=== PATIENT | female | born 2000 | race Caucasian/White ===

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

== ENCOUNTER 2018-07-21 17:58 | Emergency (ER) | payer BC, OTHER ==
[2018-07-21 18:45] VITALS: BP 131/71
--- NOTE | 2018-07-21 19:06 | UC ---
Lower Extremity/Ankle HPI - HPI Summary HPI Summary: fell down 4 stairs 2 days ago---pain right ankle and right knee abrasions right knee and right [place] - History of Current Complaint Chief Complaint: UCLowerExtremity Stated Complaint: R KNEE, R ANKLE INJURY Time Seen by Provider: 07/21/18 18:51 Hx Obtained From: Patient Hx Last Menstrual Period: June 27, 2018 ?: No Onset/Duration: Sudden Onset, Lasting Days - 2 Pain Intensity: 5 Pain Scale Used: 0-10 Numeric Aggravating Factor(s): Standing, Ambulation Alleviating Factor(s): Rest, Elevation Able to Bear Weight: Yes - with pain - Allergies/Home Medications Allergies/Adverse Reactions: Allergies Allergy/AdvReac Type Severity Reaction Status Date / Time codeine Allergy Itching Verified 07/21/18 18:47 hydrocodone Allergy Itching Verified 07/21/18 18:47 oxycodone Allergy Itching Verified 07/21/18 18:47 environmental Allergy Sneezing Uncoded 07/21/18 18:47 Home Medications: Home Medications Pnv No.95/Ferrous Fum/Folic AC [ Vitamin Tablet] 1 tab PO DAILY [History Confirmed 07/21/18] PMH/Surg Hx/FS Hx/Imm Hx Previously Healthy: No Respiratory History: Asthma - Surgical History Surgical History: Yes Surgery Procedure, Year, and Place: T&A, ear tubes. cyst removed right ovary/ right fallopian tube removed. deviated septum - Family History Known Family History: Positive: Hypertension, Diabetes - Social History Occupation: Student Lives: With Family Alcohol Use: Rare Substance Use Type: None Smoking Status (MU): Former Smoker Household Exposure Type: Cigarettes - Immunization History Vaccination Up to Date: Yes Review of Systems Constitutional: Negative Skin: Bruising - right knee, Other - abrasions right knee and right [place] Eyes: Negative ENT: Negative Respiratory: Negative Cardiovascular: Negative Gastrointestinal: Negative Genitourinary: Negative Motor: Negative Neurovascular: Negative Musculoskeletal: Negative Neurological: Negative Psychological: Negative Is Patient Immunocompromised?: No All Other Systems Reviewed And Are Negative: Yes Physical Exam Triage Information Reviewed: Yes Appearance: Well-Appearing, Well-Nourished, Pain Distress - mild Vital Signs: Initial Vital Signs Temp 98.6 F 07/21/18 18:42 Pulse 70 07/21/18 18:42 Resp 18 07/21/18 18:42 BP 131/71 07/21/18 18:42 Pulse Ox 99 07/21/18 18:42 Vital Signs Reviewed: Yes Eye Exam: Normal Eyes: Positive: Conjunctiva Clear ENT Exam: Normal ENT: Positive: Normal ENT inspection, Hearing grossly normal. Negative: Trismus , Muffled voice, Hoarse voice Dental Exam: Normal Neck exam: Normal Neck: Positive: Supple, Nontender Respiratory Exam: Normal Respiratory: Positive: Chest non-tender, No respiratory distress, No accessory muscle use Cardiovascular Exam: Normal Cardiovascular: Positive: RRR, Pulses Normal, Brisk Capillary Refill Musculoskeletal Exam: Other Musculoskeletal: Positive: ROM Intact, Strength Limited @ - right knee due to pain, Edema @ - right lateral ankle Neurological Exam: Normal Neurological: Positive: Alert, Muscle Tone Normal Psychological Exam: Normal Psychological: Positive: Normal Response To Family Skin Exam: Normal Skin: Positive: Other - abrasions right [place] and knee Lower Extremity Course/Dx - Course Course Of Treatment: gloria wrap on knee, gel splint crutches, abrasion care, follow with pcp, linh rubi - Differential Dx/Diagnosis Provider Diagnoses: right ankle sprain, right knee contusion, abrasions right lower leg Discharge - Sign-Out/Discharge Documenting (check all that apply): Patient Departure All imaging exams completed and their final reports reviewed: No - Discharge Plan Condition: Stable Disposition: HOME Patient Education Materials: Ibuprofen (By mouth), Crutch Instructions (ED), Contusion in Adults (ED), Ankle Stirrup Splint (ED), Abrasion (ED), R.I.C.E. Treatment (ED) Referrals: Medhat Wilson MD [Medical Doctor] - If Needed - Billing Disposition and Condition Condition: STABLE Disposition: Home
--- NOTE | 2018-07-22 07:52 | RAD ---
INDICATION: Right knee injury COMPARISON: None TECHNIQUE: AP, lateral, tunnel, and sunrise views were obtained. FINDINGS: The bony structures, joint spaces, and soft tissues are normal for age. IMPRESSION: NEGATIVE EXAMINATION. R0
--- NOTE | 2018-07-22 07:53 | RAD ---
Indication: Lateral RIGHT ankle pain post fall. Comparison: July 21, 2018 Technique: AP, mortise, and lateral views RIGHT ankle. REPORT AND IMPRESSION: #. Lateral soft tissue swelling and small talocrural joint effusion without evidence for fracture or malalignment. R0
--- NOTE | 2018-07-22 09:27 | UC ---
- Progress Note Progress Note: images reviewed Discharge - Sign-Out/Discharge Documenting (check all that apply): Post-Discharge Follow Up All imaging exams completed and their final reports reviewed: Yes - Discharge Plan Condition: Stable Disposition: HOME Patient Education Materials: Ibuprofen (By mouth), Crutch Instructions (ED), Contusion in Adults (ED), Ankle Stirrup Splint (ED), Abrasion (ED), R.I.C.E. Treatment (ED) Referrals: Medhat Wilson MD [Medical Doctor] - If Needed - Billing Disposition and Condition Condition: STABLE Disposition: Home
== END 2018-07-21 20:25 | disposition home or self-care (01) ==
LOC: UCEAST 17:58
DX: S93.401A Sprain of unspecified ligament of right ankle, initial encounter (principal); S80.01XA Contusion of right knee, initial encounter; S80.811A Abrasion, right lower leg, initial encounter; J45.909 Unspecified asthma, uncomplicated; Z88.5 Allergy status to narcotic agent; Z88.8 Allergy status to other drugs, medicaments and biological substances; Z91.09 Other allergy status, other than to drugs and biological substances; Z87.891 Personal history of nicotine dependence; W10.9XXA Fall (on) (from) unspecified stairs and steps, initial encounter; Y92.9 Unspecified place or not applicable
CPT/HCPCS: 84702; 99213; G0463

== ENCOUNTER 2019-10-10 11:22 | Emergency (ER) | payer BC ==
--- NOTE | 2019-10-10 11:26 | UC ---
Head Injury HPI - HPI Summary HPI Summary: 19 yo female presents with facial injury. She tells me that about 2 hours [employer] she slipped on the ice and landed on her left arm/face. Sustained a superficial abrasion to her left jaw. Since that time has had pain at her left TMJ when trying to open her mouth. Took 800mg ibuprofen and has been applying ice, but pain has not improved - she is concerned for fracture. No LOC. Denies headache, dizziness, dental fracture, neck pain, numbness/tingling. - History Of Current Complaint Stated Complaint: FACIAL INJURY Time Seen by Provider: 10/10/19 11:25 Hx Obtained From: Patient Hx Last Menstrual Period: June 27, 2018 Onset/Duration: Sudden Onset Severity Currently: Moderate Severity Initially: Moderate Pain Intensity: 6 Pain Scale Used: 0-10 Numeric - Allergies/Home Medications Allergies/Adverse Reactions: Allergies Allergy/AdvReac Type Severity Reaction Status Date / Time codeine Allergy Itching Verified 10/10/19 11:27 hydrocodone Allergy Itching Verified 10/10/19 11:27 oxycodone Allergy Itching Verified 10/10/19 11:27 environmental Allergy Sneezing Uncoded 10/10/19 11:27 Home Medications: Home Medications Ibuprofen TAB* [Motrin TAB* 800 MG] 800 mg PO ONCE 10/10/19 [History Confirmed 10/10/19] PMH/Surg Hx/FS Hx/Imm Hx Respiratory History: Asthma - Surgical History Surgical History: Yes Surgery Procedure, Year, and Place: T&A, ear tubes. cyst removed right ovary/ right fallopian tube removed. deviated septum - Family History Known Family History: Positive: Hypertension, Diabetes - Social History Lives: With Family Alcohol Use: Rare Substance Use Type: None Smoking Status (MU): Former Smoker Household Exposure Type: Cigarettes - Immunization History Vaccination Up to Date: Yes Review of Systems All Other Systems Reviewed And Are Negative: No Constitutional: Positive: Negative Skin: Positive: Other - Abrasion left face Eyes: Positive: Negative ENT: Positive: Negative Respiratory: Positive: Negative Cardiovascular: Positive: Negative Gastrointestinal: Positive: Negative Musculoskeletal: Positive: Other: - Left TMJ pain Neurological: Positive: Negative Psychological: Positive: Negative Physical Exam - Summary Physical Exam Summary: GENERAL: NAD. WDWN. No pain distress. SKIN: Superficial abrasion overlying left mandible. HEENT: Head: See skin. No thomas sign. Eyes: PERRLA. EOM intact. Ears: Hearing grossly normal. TMs intact, no bulging, erythema, or edema. Nose: Nasal mucosa pink and moist. NTTP maxillary and frontal sinus. No epistaxis. DENTAL: No fx. NECK: Supple. Nontender. CHEST: CTAB. No r/r/w. No accessory muscle use. Breathing comfortably and in no distress. CV: RRR. Pulses intact. Brisk cap refill. MSK: LEFT TMJ mild TTP. Pain with opening jaw or clenching teeth. NEURO: Alert. PSYCH: Age appropriate behavior. Triage Information Reviewed: Yes Vital Signs: Vital Signs: Temp Pulse Resp BP Pulse Ox 98.3 F 73 16 100/60 100 10/10/19 11:29 10/10/19 11:29 10/10/19 11:29 10/10/19 11:29 10/10/19 11:29 Vital Signs Reviewed: Yes Diagnostics - Radiology TMJ XR Radiology Interpretation Completed By: Radiologist Summary of Radiographic Findings: IMPRESSION: #. No radiographic evidence for mandibular fracture or TMJ dislocation. Head Injury Course/Dx - Course Course Of Treatment: XR as above. Suspect contusion from fall and impact. Recommend soft diet for the next 48hrs and continue tylenol/ibuprofen and ice for discomfort - Differential Dx/Diagnosis Provider Diagnosis: Fall, Temporomandibular joint (TMJ) pain Discharge ED - Sign-Out/Discharge Documenting (check all that apply): Patient Departure All imaging exams completed and their final reports reviewed: Yes - Discharge Plan Condition: Stable Disposition: HOME Patient Education Materials: Contusion in Adults (ED) Referrals: Melina Craig MD [Primary Care Provider] - Additional Instructions: If you develop a fever, shortness of breath, chest pain, new or worsening symptoms - please call your PCP or go to the ED immediately. Your X-ray was normal today. Continue to rest, apply ice, and take tylenol/ibuprofen as directed for discomfort - Billing Disposition and Condition Condition: STABLE Disposition: Home
[2019-10-10 11:35] VITALS: BP 100/60
== END 2019-10-10 12:25 | disposition home or self-care (01) ==
LOC: UCEAST 11:22
DX: S00.81XA Abrasion of other part of head, initial encounter (principal); M26.622 Arthralgia of left temporomandibular joint; J45.909 Unspecified asthma, uncomplicated; Z88.5 Allergy status to narcotic agent; Z91.09 Other allergy status, other than to drugs and biological substances; Z87.891 Personal history of nicotine dependence; W00.0XXA Fall on same level due to ice and snow, initial encounter; Y92.9 Unspecified place or not applicable
CPT/HCPCS: 70330; 99211; G0463

== ENCOUNTER 2019-12-09 11:15 | Emergency (ER) | payer BC ==
[2019-12-09 11:35] VITALS: BP 112/72
--- NOTE | 2019-12-09 12:48 | UC ---
Ear Complaint HPI - HPI Summary HPI Summary: Patient is a 19yo female presenting with b/l ear pain, worse on R, and nasal congestion x3 days. Patient states she is concerned for ear infection, stating she is prone to them. Notes "clear sticky drainage" from the R ear. Denies decreased hearing and dizziness. Denies fever and chills. Denies sore throat. Denies n/v. Denies taking anything for symptom relief. Currently breast feeding. - History of Current Complaint Chief Complaint: UCEar Stated Complaint: EAR PAIN Hx Obtained From: Patient Hx Last Menstrual Period: 3 wks ago Pain Intensity: 4 Pain Scale Used: 0-10 Numeric - Allergies/Home Medications Allergies/Adverse Reactions: Allergies Allergy/AdvReac Type Severity Reaction Status Date / Time codeine Allergy Itching Verified 12/09/19 11:35 hydrocodone Allergy Itching Verified 12/09/19 11:35 oxycodone Allergy Itching Verified 12/09/19 11:35 environmental Allergy Sneezing Uncoded 12/09/19 11:35 PMH/Surg Hx/FS Hx/Imm Hx Previously Healthy: Yes - Surgical History Surgical History: Yes Surgery Procedure, Year, and Place: T&A, ear tubes. cyst removed right ovary/ right fallopian tube removed. deviated septum - Family History Known Family History: Positive: Hypertension, Diabetes - Social History Alcohol Use: Rare Substance Use Type: None Smoking Status (MU): Former Smoker Household Exposure Type: Cigarettes - Immunization History Vaccination Up to Date: Yes Review of Systems All Other Systems Reviewed And Are Negative: Yes Constitutional: Positive: Negative. Negative: Fever, Chills ENT: Positive: Ear Ache - bilateral, worse on R. "clear, sticky drainage from R ear", Sinus Congestion. Negative: Sore Throat, Nasal Discharge Respiratory: Positive: Negative Cardiovascular: Positive: Negative Gastrointestinal: Positive: Negative Musculoskeletal: Negative: Myalgia Neurological: Negative: Headache Physical Exam Triage Information Reviewed: Yes Appearance: Well-Appearing, No Pain Distress, Well-Nourished Vital Signs: Initial Vital Signs Temp 97.6 F 12/09/19 11:33 Pulse 78 12/09/19 11:33 Resp 18 12/09/19 11:33 BP 112/72 12/09/19 11:33 Pulse Ox 98 12/09/19 11:33 Vital Signs Reviewed: Yes Eyes: Positive: Conjunctiva Clear ENT: Positive: Hearing grossly normal, Pharynx normal, Nasal congestion, TM bulging - right, TM red - right, Uvula midline, Other - EAC without erythema, edema, or drainage Neck exam: Normal Neck: Positive: Supple, Nontender, No Lymphadenopathy Respiratory Exam: Normal Respiratory: Positive: Lungs clear, Normal breath sounds, No respiratory distress Cardiovascular Exam: Normal Cardiovascular: Positive: RRR Neurological: Positive: Alert Psychological: Positive: Age Appropriate Behavior Skin Exam: Normal Ear Complaint Course/Dx - Course Course Of Treatment: Treated patient with amoxicillin for AOM. Instructed to continue with OTC analgesics and follow-up with PCP if symptoms worsen or persist. Patient voiced understanding and agreed with treatment plan. Discharge ED - Discharge Plan Condition: Stable Disposition: HOME Prescriptions: Amoxicillin PO (*) [Amoxicillin 875 MG (*)] 875 mg PO BID #10 tab Patient Education Materials: Ear Infection (ED) Referrals: Melina Craig MD [Primary Care Provider] - If Needed Additional Instructions: As discussed, take amoxicillin for treatment of your ear infection. A nasal saline spray or flonase may also help relieve symptoms. You may take ibuprofen or tylenol for pain relief. Follow up with your primary care provider if symptoms worsen or do not resolve within 5-7 days. - Billing Disposition and Condition Condition: STABLE Disposition: Home
== END 2019-12-09 13:15 | disposition home or self-care (01) ==
LOC: UCEAST 11:15
DX: H66.93 Otitis media, unspecified, bilateral (principal); Z88.5 Allergy status to narcotic agent; Z91.09 Other allergy status, other than to drugs and biological substances
CPT/HCPCS: 99212; G0463

== ENCOUNTER 2020-02-20 16:18 | Emergency (ER) | payer BC ==
--- NOTE | 2020-02-20 16:26 | UC ---
Complaint Female HPI - HPI Summary HPI Summary: 19 y/o female presents to the urgent care c/o intermittent bilateral lower abdominal cramping pain for the past 5-6 days. Sometimes she feels RT>LF. She still breast feeding. Her Baby is 9months and LMP: 01/21/2020 with irregular menstrual cycles. Pt states she occasional feels sharp cramping RTside pain. She has Hx of Ovarian cysts. She has an schedule appt w/ her CENTRAL OFFICE INSPECTOR on 03/05/2020. However, she called them to have an Pelvic US sooner and she was told to come to the Urgent care due to the circumstances of the COVID19. Her pain today is dull 3/10 w/o any radiation and doesn't get worse w/ food intake. Her BM and urination have been normal. Pt denies fever, SOB, cough, chest pain, blood in the stool, N/V/D, vaginal discharge or Hx of STD's. No recent travel. - History Of Current Complaint Stated Complaint: ABDOMINAL PAIN Time Seen by Provider: 02/20/20 16:24 Hx Obtained From: Patient Hx Last Menstrual Period: 3 wks ago ?: No Onset/Duration: Gradual Onset Timing: Intermittent - lower abdominal cramping pain RT>LF, Lasting Days - 5-6 days Severity Initially: Mild Severity Currently: Moderate Pain Intensity: 3 Pain Scale Used: 0-10 Numeric Character: Cramping Aggravating Factor(s): Nothing Alleviating Factor(s): Meds - tylenol PO Associated Signs And Symptoms: Positive: Negative. Negative: Fever, Back Pain, Vaginal Bleeding/Discharge, Vaginal Discharge, Nausea, Vomiting(# Of Episodes =) Related Hx: Similar Episode/Dx as: - ovarian cysts - Risk Factors Ectopic Risk Factor: Negative Ovarian Torsion Risk Factor: Reproductive Age, Ovarian Cysts/Tumors - Allergies/Home Medications Allergies/Adverse Reactions: Allergies Allergy/AdvReac Type Severity Reaction Status Date / Time codeine Allergy Itching Verified 02/20/20 16:31 hydrocodone Allergy Itching Verified 02/20/20 16:31 oxycodone Allergy Itching Verified 02/20/20 16:31 environmental Allergy Sneezing Uncoded 02/20/20 16:31 Home Medications: Home Medications Pnv No.95/Ferrous Fum/Folic AC [ Vitamin Tablet] 1 tab PO DAILY [History Confirmed 02/20/20] Acetaminophen TAB* [Tylenol TAB*] 650 mg PO PRN 02/20/20 [History] metroNIDAZOLE VAGINAL 0.75%* 1 applic VAGINAL BEDTIME #1 tube 02/20/20 [Rx] PMH/Surg Hx/FS Hx/Imm Hx Previously Healthy: Yes Other GI/ History: Hx of ovarian cysts - Surgical History Surgical History: Yes Surgery Procedure, Year, and Place: T&A, ear tubes. cyst removed right ovary/ right fallopian tube removed. deviated septum - Family History Known Family History: Positive: Hypertension, Diabetes - Social History Occupation: Employed Part-time Lives: With Family Alcohol Use: Rare Substance Use Type: None Smoking Status (MU): Former Smoker Household Exposure Type: Cigarettes - Immunization History Vaccination Up to Date: Yes Review of Systems All Other Systems Reviewed And Are Negative: Yes Constitutional: Positive: Negative Skin: Positive: Negative Eyes: Positive: Negative ENT: Positive: Negative Respiratory: Positive: Negative Cardiovascular: Positive: Negative Gastrointestinal: Positive: Abdominal Pain - B/L lower abdominal cramping pain. Negative: Vomiting, Diarrhea, Nausea Genitourinary: Positive: Negative Motor: Positive: Negative Neurovascular: Positive: Negative Musculoskeletal: Positive: Negative Neurological/Mental Status: Positive: Negative Psychological: Positive: Negative Is Patient Immunocompromised?: No Physical Exam - Summary Physical Exam Summary: Vital signs: reviewed General: well developed, well nourished female sitting in the examining table w/o any acute distress. Head: Normocephalic, no lesions. Eyes: PERRLA, EOM's full, conjunctiva clear, fundi grossly normal. Ears: EAC's clear, TM's normal. Nose: Mucosa normal, no obstruction. Throat: Clear, no exudates, no lesions. Neck: Supple, no masses, no thyromegaly, no bruits. Chest: Lungs clear, no rales, no rhonchi, no wheezes. Heart: RR, no murmurs, no rubs, no gallops. ABDOMEN::: Flat with no distention. No surface trauma, normal bowel sounds present in all four quadrants. No abdominal tenderness, Mild B/L suprapubic tenderness on deep palpation RT>LF, no rebound, no guarding, rigidity to palpation. No masses palpated, no pulsation in epigastric area. No organomegaly. Negative Smith's signs. No periumbilical tenderness. NT over McBurney's point. . Good femoral pulses bilaterally. No hernia noted. No CVAT bilaterally Pelvic: I was assisted by nurse Chelsea. External genitalia within normal limits. There is no lesions there is no masses noted. Speculum exam: The vaginal cruz are within normal limits w/ moderate greyish vaginal discharge, no lesions or rashes. The cervix is closed with discrete erythema, no lesions or masses. There is no CMT's, and no adnexal masses. Sample sent to Lab for Affirm panel. Rectal: No lesions, no hemorrhoids, Back: Normal curvature, no tenderness. Extremities: FROM, no deformities, no edema, no erythema. Neuro: Physiological, no localizing findings. Skin: Normal, no rashes, no lesions noted. Triage Information Reviewed: Yes Complaint Female Dx - Course Course Of Treatment: 19 y/o female presents to the urgent care c/o intermittent bilateral lower abdominal cramping pain for the past 5-6 days. Sometimes she feels RT>LF. She still breast feeding. Her Baby is 9months and LMP: 01/21/2020 with irregular menstrual cycles. Pt states she occasional feels sharp cramping RTside pain. She has Hx of Ovarian cysts. She has an schedule appt w/ her CENTRAL OFFICE INSPECTOR on 03/05/2020. However, she called them to have an Pelvic US sooner and she was told to come to the Urgent care due to the circumstances of the COVID19. Her pain today is dull 3/10 w/o any radiation and doesn't get worse w/ food intake. Her BM and urination have been normal. Pt denies fever, SOB, cough, chest pain, blood in the stool, N/V/D, vaginal discharge or Hx of STD's. No recent travel. Hx obtained. Pt is hemodynamically stable, A&Ox3. PE: WNL, except Mild tenderness on deep palpation over the B/L pelvic area. Pelvic exam: I was assisted by Nurse Tran. Pt w/ possible Bacterial vaginosis on pelvic examination. UA ordered : negative . test: negative. Pt declined any pain medication vaginal swabs sent to lab to screen for STD's and r/o any abnormality. Pelvic US to r/o ovarian cyst or rupture or other abnormality:FINDINGS: The retroverted uterus is normal in size, shape and echogenicity. The uterus measured 7.8 x 4.4 x 4.1 cm. The endometrial echo measured 0.9 cm in thickness. The right ovary measured 2.7 x 2.1 x 2.0 cm. The left ovary measured 3.0 x 2.3 x 2.0 cm. There are subcentimeter bilateral ovarian follicles Ovarian Doppler signal is detected bilaterally. There is trace free fluid in the pelvis. IMPRESSION: 1. TRACE FREE FLUID IN THE PELVIS. 2. OVARIAN DOPPLER SIGNAL DETECTED BILATERALLY as per radiologist. Pt Rx Metrogel vaginal cream as directed below and advised to f/u w/ her CEN[employer]AL OFFICE INSPECTOR for a PAP or further management if not improvement of symptoms. Also advised to take Aleve PO or Ibuprofen PO to alleviate pelvic pain, VS: retaken and are WNL before discharge. Pt's BP is elevated today and advised to decrease salt in diet, monitor BP and f/u with PCP if BP continues to be elevated for further management. D/C instructions explained. Pt understood and agreed with plan of care and left clinic ambulating. - Differential Dx/Diagnosis Differential Diagnosis/HQI/PQRI: Cervicitis, Ovarian Cyst, Ovarian Torsion, Pelvic Inflammatory Disease, , Renal Colic, Sexually Transmitted Disease, Ureteral Stone, Urinary Tract Infection Provider Diagnosis: Pelvic pain, Bacterial vaginosis, Elevated BP without diagnosis of hypertension Discharge ED - Sign-Out/Discharge Documenting (check all that apply): Patient Departure - D/C home All imaging exams completed and their final reports reviewed: Yes - Discharge Plan Condition: Stable Disposition: HOME Prescriptions: metroNIDAZOLE VAGINAL 0.75%* 1 applic VAGINAL BEDTIME #1 tube Patient Education Materials: Bacterial Vaginosis (ED), Pelvic Pain in Women (ED ) Referrals: Melina Craig MD [Primary Care Provider] - 3 Days Additional Instructions: 1-Please f/u with CENTRAL OFFICE INSPECTOR for a PAP as soon as possible. Please Take Aleve PO or Ibuprofen PO q6-8hrs after meals you have at home alleviate pain. 2- Please Apply Metrogel vaginal cream as directed. 3- Specimen were sent to lab, if anything abnormal you will receive a call from us for further treatment. 4-If you develop severe pelvic or abdominal pain, w/ Nausea or vomiting or fever please go to the ER immediately to the ER for further management, Otherwise f/u w/ your CENTRAL OFFICE INSPECTOR for further management. 5- Your BP is elevated today and advised to decrease salt in diet, monitor BP and f/u with PCP for further management. - Billing Disposition and Condition Condition: STABLE Disposition: Home
[2020-02-20 18:44] VITALS: BP 122/70
== END 2020-02-20 18:28 | disposition home or self-care (01) ==
LOC: UCEAST 16:18
DX: R10.2 Pelvic and perineal pain (principal); N76.0 Acute vaginitis; R03.0 Elevated blood-pressure reading, without diagnosis of hypertension; Z32.02 Encounter for pregnancy test, result negative; Z88.5 Allergy status to narcotic agent; Z87.891 Personal history of nicotine dependence
CPT/HCPCS: 76830; 76856; 81003; 84702; 87480; 87510; 99212; G0463